=== PATIENT | female | born 1945 | race Two or more races ===

== ENCOUNTER 2020-06-22 22:22 | Emergency (ER) | payer OTHER ==
[~2020-06-22] VITALS: Ht 160 cm; Wt 59.0 kg
[2020-06-23 00:57] LABS: Hematocrit 39.7 % (36.0-46.0); Hemoglobin 13.1 g/dL (12.2-16.2); Mean Corpuscular Hemoglobin 29.3 pg (28.0-32.0); Mean Corpuscular Volume 88.6 fL (80.0-100.0); Platelet Count (auto) 211 10^3/uL (140-450); Red Blood Cells 4.48 10^6/uL (4.0-5.20); Red Cell Distribution Width 13.7 % (11.8-14.3); White Blood Cell 4.2 10^3/uL (4.4-10.8)
[2020-06-23 01:01] LABS: Band Neutrophils % (manual) 0; Basophils % (manual) 0 (0.0-2.0); Blast Cells 0; Eosinophils % (manual) 0 (0-7); Metamyelocytes % 0; Myelocytes % 0; Promyelocytes % 0; Reactive Lymphocytes 0
[2020-06-23 01:11] LABS: INR 0.97 (0.9-1.15); Partial Thromboplastin Time 28.8 sec (23.0-31.2)
[2020-06-23 01:13] LABS: Alanine Aminotransferase 23 U/L (13-56); Albumin 3.3 g/dL (3.4-5.0); Anion Gap 6 (5-15); Aspartate Aminotransferase 19 U/L (15-37); BUN/Creatinine Ratio 18.4; Blood Urea Nitrogen 16 mg/dL (7-18); Calcium 8.7 mg/dL (8.5-10.1); Carbon Dioxide 26 mmol/L (21-32); Chloride 109 mmol/L (98-107); GFR African American 82 mL/min; GFR Non-African American 68 mL/min; Glucose 85 mg/dL (74-106); Potassium 3.8 mmol/L (3.5-5.1); Sodium 141 mmol/L (136-145)
[2020-06-23 01:17] LABS: Alkaline Phosphatase 96 U/L (45-117); Bilirubin, Total 0.2 mg/dL (0.2-1.0)
[2020-06-23 01:23] LABS: Lymphocytes % (manual) 25 (10.0-50.0); Monocytes % (manual) 15 (0-12)
[2020-06-23] MEDS ORDERED: ACETAMINOPHEN 325 MG TAB PO ONE (03:15)
[2020-06-23 03:40] VITALS: BP 109/69
== END 2020-06-23 04:12 | disposition home or self-care (01) ==
LOC: ER 22:22
DX: U07.1 COVID-19 (principal); R53.1 Weakness; R05 Cough; R51 Headache
CPT/HCPCS: 36415; 71045; 80053; 82728; 83605; 83880; 84484; 85007; 85027; 85379; 85610; 85730; 87040; 87426; 93005

== ENCOUNTER 2024-01-25 17:19 | Emergency (ER) | payer OTHER ==
[~2024-01-25] VITALS: Ht 162.6 cm; Wt 50.0 kg
[2024-01-25 17:47] VITALS: PULSE 88; RESP 16; O2SAT 97
[2024-01-25 18:26] LABS: Acetaminophen < 2.0 UG/ML (10.0-20.0)
[2024-01-25 18:54] LABS: Salicylate < 3.0 mg/dL (2.8-20.0)
[2024-01-25 20:22] LABS: Amphetamine Screen, Urine Neg (NEGATIVE); Barbiturate Scree,Urine Neg (NEGATIVE); Benzodiazephine Screen, Urine Neg (NEGATIVE)
[2024-01-25 20:23] LABS: Cannabinoid Screen, Urine Neg (NEGATIVE); Cocaine Screen, Urine Neg (NEGATIVE); Opiate Scree,Urine Neg (NEGATIVE); Phencyclidine Screen, Urine Neg (NEGATIVE)
[2024-01-25 23:30] VITALS: BP 137/72; PULSE 72; RESP 18; TEMP 98; O2SAT 98
== END 2024-01-25 23:56 | disposition home or self-care (01) ==
LOC: EDBD 17:19 → ER 17:19
DX: R45.851 Suicidal ideations (principal); M25.561 Pain in right knee; M25.551 Pain in right hip; Z79.899 Other long term (current) drug therapy
CPT/HCPCS: 36415; 73501; 73560; 80307; 80320; 80329

== ENCOUNTER 2025-04-10 19:40 | Inpatient (IN) | payer OTHER ==
[~2025-04-10] VITALS: Ht 162.6 cm; Wt 57.7 kg
--- NOTE | 2025-04-10 22:17 | DVH ---
Exam: CT PELVIS WO CONTRAST History: fall Comparison Study: None Technique: Multidetector CT of the pelvis was performed from iliac crests to pubic symphysis after th e administration of intravenous contrast was administered during this examination. Portal venous imag ing was obtained. Axial, coronal and sagittal multiplanar reformats were performed by the technMyShapeis t on a separate workstation. Radiation Dose : CT Dose: CTDI volume is 10.38 mGy. Dose-length product is 379 0.47 mGy*cm Findings: Visualized bowel: No bowel wall thickening or dilatation. Ascites: Absent Lymphadenopathy: No pelvic or mesenteric lymphadenopathy. Vasculature: The visualized abdominal aorta is normal in size and caliber. Abdominal and pelvic vesse ls demonstrate normal enhancement. Pelvic Organs: Unremarkable Musculoskeletal: Severe osteoarthritis of the right hip with large subchondral cyst formation to the femoral head and fragmentation and collapse of the femoral head consistent with avascular necrosis. Bladder: Unremarkable Soft tissues: Unremarkable. IMPRESSION: 1. Severe osteoarthritic changes to the right hip with fragmentation of the right femoral head collap se suggesting underlying osteo necrosis. All CT scans at this medical facility are performed using dose modulation techniques as appropriate t o a performed exam including the following: Automated exposure control was utilized; adjustment of th e MA and/or KV according to patient size; and use of iterative reconstruction technique.
[2025-04-11 00:09] VITALS: PULSE 77; RESP 14; O2SAT 96
--- NOTE | 2025-04-11 00:24 | DVH ---
EXAM: CT HEAD WITHOUT CONTRAST INDICATION: fall TECHNIQUE: CT of the head without intravenous contrast. Radiation Dose : 1. Head: CT Dose: CTDI volume is 880.85 mGy. Dose-length product is 879.14 mGy*cm The dose indicators for CT are the volume Computed Tomography (CT) Dose Index (CTDIvol) and the Dose Length Product (DLP), and are measured in units of mGy and mGy-cm, respectively. These indicators are not patient dose, but values generated from the CT scanner acquisition factors. The report includes radiation exposure data for exposures received during this examination. COMPARISON: None FINDINGS: Beam attenuation artifact from the patient's hand on her face has obscured the findings of the skull base and posterior cranial fossa. There is no gross evidence of acute intracranial hemorrhage, extra-axial collection, mass effect, mid line shift, herniation or hydrocephalus. Increased prominence of the ventricles, sulci and cisterns is consistent with the sequelae of atrophi c cortical volume loss. The hart-white differentiation is intact. Moderate diffuse confluent periventricular and subcortical white matter hypoattenuation is nonspecifi c but may be related to small vessel ischemic disease. The surrounding soft tissues and osseous structures are grossly unremarkable. IMPRESSION: 1. Limited exam secondary to beam attenuation artifact arising from the patient's hand on her left si de of her face during the scan. This has resulted in obscuration of detail of the skull base and post erior cranial fossa. If there is strong suspicion for pathology in these regions, a repeat scan shoul d be performed when the patient can be compliant. 2. No gross evidence of acute intracranial process within the supratentorial brain not impacted by th e artifact described above. 3. Chronic sequelae of microvascular disease and atrophic cortical volume loss. Radiation optimization: All CT scans at this facility use at least one of these dose optimization turner hniques: automated exposure control mA and/or kV adjustment per patient size (includes targeted exam s where dose is matched to clinical indication) or iterative reconstruction.
--- NOTE | 2025-04-11 00:56 | ED.PDOC ---
History of Present Illness HPI Comments 79-year-old female brought in by EMS. Patient had a fall, complaining of pain to her right-sided flank. She believes she fell on top of a plastic container. Patient states she fell due to taking her Ativan and feeling tired and dizzy. Patient has had a incident at the pharmacy where she can not get her medications she was upset so she took one of her Ativan. Patient also reports history of right hip arthritis and states that Dr. Quiles supposed to perform hip replacement. Patient was cleaning of right flank pain and back pain and head pain. Denies any loss of consciousness. Patient unable to ambulate due to pain. Chief Complaint: Fall Injury Time Seen by MD: 19:51 Reviewed Notes: Nurses Notes Allergies: Coded Allergies: Aspirin (Verified Allergy, Unknown, 04/10/25) Ibuprofen (Verified Allergy, Unknown, 04/10/25) Information Source: Patient Mode of Arrival: EMS Severity: Moderate Past Medical History PAST MEDICAL HISTORY: Seizures Surgical History: Denies all surgeries PAPERHANGER AND PAINTER History: No Pertinent P[employer]ERHANGER AND PAINTER History Family History Family History: Reviewed,noncontributory to illness Social History Smoker: Non-Smoker Alcohol: Denies ETOH Use Drugs: Denies Drug Use Lives In: Home Constitutional: denies: chills, diaphoresis, fatigue, fever, malaise, sweats, weakness, others EENTM: denies: blurred vision, double vision, ear bleeding, ear discharge, ear drainage, ear pain, ear ringing, eye pain, eye redness, hearing loss, mouth pain, mouth swelling, nasal discharge, nose bleeding, nose congestion, nose pain, photophobia, tearing, throat pain, throat swelling, voice changes, others Respiratory: denies: cough, hemoptysis, orthopnea, SOB at rest, shortness of breath, SOB with excertion, stridor, wheezing, others Cardiovascular: denies: chest pain, dizzy spells, diaphoresis, Dyspnea on exertion, edema, irregular heart beat, left arm pain, lightheadedness, palpitations, PND, syncope, others Gastrointestinal: denies: abdomen distended, abdominal pain, blood streaked bowels, constipated, diarrhea, dysphagia, difficulty swallowing, hematemesis, melena, nausea, poor appetite, poor fluid intake, rectal bleeding, rectal pain, vomiting, others Genitourinary: denies: abnormal vagina bleeding, burning, dyspareunia, dysuria, flank pain, frequency, hematuria, incontinence, pain, , vagina discharge, urgency, others Neurological: denies: dizziness, fainting, headache, left sided numbness, left sided weakness, paresthesia, pre-existing deficit, right sided numbness, right sided weakness, seizure, speech problems, tingling, tremors, weakness, others Musculoskeletal: reports: back pain, joint pain, joint swelling, muscle pain Integumetry: denies: bruises, change in color, change in hair/nails, dryness, laceration, lesions, lumps, rash, wounds, others Allergic/Immunocompromised: denies: Difficulty Healing, Frequent Infections, Hives, Itching, others Physical Exam General Appearance: No Apparent Distress, Normal HEENT: Normal ENT Inspection, Pharynx Normal, TMs Normal Neck: Full Range of Motion, Non-Tender, Normal, Normal Inspection Respiratory: Chest Non-Tender, Lungs Clear, No Accessory Muscle Use, No Respiratory Distress, Normal Breath Sounds Cardiovascular: No Edema, No JVD, No Murmur, No Gallop, Normal Peripheral Pulses, Regular Rate/Rhythm Breast Exam: Deferred Gastrointestinal: No Organomegaly, Non Tender, No Pulsatile Mass, Normal Bowel Sounds, Soft Genitalia: Deferred Pelvic: Deferred Rectal: Deferred Extremities: No calf tenderness, Normal capillary refill, Normal inspection, Normal range of motion, Non-tender, No pedal edema Musculoskeletal : Location: Right Extremity Location: Hip (Tender to palpation of the top of the pelvis, no obvious leg shortening. Distal circulation and no vascular response intact of the lower extremities.) Apperance: Normal Neurologic: Alert, search marketing coordinator II-XII nml as Tested, Normal Mood Cerebellar Function: Normal Reflexes: NOT DONE Skin: Dry, Normal Color, Warm Lymphatic: No Adenopathy Was a procedure done? Was a procedure done?: No Differential Dx Considerations may include: Fracture, hip contusion, back contusion, lumbar strain, closed head injury X-Ray, Labs, Meds, VS Vital Signs Date Time Temp Pulse Resp B/P (MAP) Pulse Ox O2 Delivery O2 Flow Rate FiO2 04/10/25 22:43 98.4 80 17 132/74 (93) 97 98.4 04/10/25 19:59 97.5 71 16 131/75 (93) 98 97.5 X-Ray, Labs, Meds, VS Comment Spoke with son, patient lives alone, she is unable to take care of herself currently due to her hip pain Patient be admitted, pending orders from choice physicians According to the son patient is makes too much money to qualify for assistance, but does not make enough money to afford in-home care and/or nursing facility. Time of 1ST Reevaluation: 00:55 Reevaluation 1ST: Unchanged Patient Education/Counseling: Diagnosis, Treatment Family Education/Counseling: Diagnosis, Treatment SEPSIS Sepsis Screen Date sepsis recognized/suspect: Apr 10, 2025 Time Sepsis recognized/suspect: 1944 Recent Procedure: No On Antibiotic Therapy: No Respiratory Rate >20: No Heart Rate >90: No Temp<36 C (96.8 F) or >38.3 C: No SBP <90 or MAP <65 mmHG: No New Acute Mental Status Change: No Is the patient on CPAP, BIPAP,: No Physician Orders Pelvis Wo Contrast (04/10/25 20:44) Head Without Contrast (04/10/25 23:41) Vital Signs Date Time Temp Pulse Resp B/P (MAP) Pulse Ox O2 Delivery O2 Flow Rate FiO2 04/10/25 22:43 98.4 80 17 132/74 (93) 97 98.4 04/10/25 19:59 97.5 71 16 131/75 (93) 98 97.5 Departure 1 Departure Time of Disposition: 00:54 Impression: Primary Impression: Generalized weakness Additional Impressions: Right hip pain Right flank pain Gravely disabled Disposition: 09 ADMITTED INPATIENT Condition: Stable Discharged With: Self Critical Care Note Critical Care Time?: No Stability Stability form required: No Heart Score Heart Score: Heart Score Response (Comments) Value History N/A 0 EKG N/A 0 Age N/A 0 Risk Factors N/A 0 Troponin N/A 0 Total 0 RODRIGO DEY Apr 11, 2025 00:56
[2025-04-11 01:51] LABS: Hematocrit 37.1 % (36.0-46.0); Hemoglobin 12.2 g/dL (12.2-16.2); Mean Corpuscular Hemoglobin 29.6 pg (28.0-32.0); Mean Corpuscular Volume 89.9 fL (80.0-100.0); Nucleated Red Blood Cells % 0.0 %
[2025-04-11 01:58] LABS: Potassium 3.9 mmol/L (3.5-5.1); Sodium 142 mmol/L (136-145)
[2025-04-11 01:59] LABS: Anion Gap 6 (5-15); Carbon Dioxide 29 mmol/L (20-31)
[2025-04-11 02:00] LABS: Calcium 9.1 mg/dL (8.7-10.4); Chloride 107 mmol/L (98-107)
[2025-04-11 02:04] LABS: BUN/Creatinine Ratio 14.5 (10.0-20.0); Blood Urea Nitrogen 12 mg/dL (9-23); Glucose 102 mg/dL (74-106)
--- NOTE | 2025-04-11 03:45 | DVH ---
CHEST RADIOGRAPH Indication: dizzy Technique: Single frontal view of the chest was obtained COMPARISON: CHEST PORTABLE on DOS: 06/23/20 FINDINGS: Lines and Tubes: None Lungs: Diffuse chronic appearing bilateral interstitial pulmonary markings and increased prominence o f the interstitium. No evidence of focal consolidation. Pleura: No effusion. No pneumothorax. Cardiomediastinal contours: Unremarkable. Atherosclerotic vascular calcifications. Bones: Unremarkable IMPRESSION: 1. Diffuse increased prominence of the interstitium and chronic appearing bilateral interstitial pulm onary markings. No evidence of acute cardiopulmonary process.
[2025-04-11] MEDS ORDERED: MORPHINE SULFATE INJ 2 MG/ml SYRG IV PRN (06:00)
[2025-04-11] MEDS ORDERED: DEXTROSE (50%) 50ML SYRG IV PRN (06:00)
[2025-04-11] MEDS ORDERED: ONDANSETRON HCL 4 MG/2 ML VIAL IV PRN (06:00)
[2025-04-11] MEDS ORDERED: NITROGLYCERIN 0.4 MG SL TAB SL PRN (06:00)
--- NOTE | 2025-04-11 06:06 | DVHHP2 ---
SUNNI LINCOLN [employer] 04/11/25 0606: History of Present Illness Reason for Visit: right hip s/p fall History of Present Illness 79-year-old female with past medical history of right hip osteoarthritis with necrosis presents with complaints of right hip pain s/p fall. Patient apparently was drowsy after taking Ativan and fell when trying to get out of passenger side of a vehicle. Patient states hip pain is 10/10. Endorses she is having difficulty being able to move around and care for herself because of hip pain. During the emergency department evaluation CT of the pelvis demonstrates severe osteoarthritic changes to the right hip with fragmentation of the right femoral head collapse suggesting underlying osteonecrosis. At this time patient denies any fevers, chills, shortness of breath, dizziness, syncope, chest pain, palpitations, leg swelling, abdominal pain, nausea, vomiting Musculoskeletal: Osteoarthritis Smoke: No ALCOHOL: none Drugs: None Lives: Alone Review of Systems Constitutional: No: Fever, Chills, Sweats, Weakness, Malaise, Other Eyes: No: Pain, Vision change, Conjunctivae inflammation, Eyelid inflammation, Other, Redness ENT: No: Ear pain, Ear discharge, Nose pain, Nose discharge, Nose congestion, Mouth pain, Mouth swelling, Throat pain, Throat swelling, Other Respiratory: No: Cough, Dry, Shortness of breath, SOB with excertion, Wheezing, Hemoptysis, Pleuritic Pain, Sputum, Wheezing, Other Cardiovascular: No: Chest Pain, Palpitations, Orthopnea, Paroxysmal Noc. Dyspnea, Edema, Lt Headedness, Other Gastrointestinal: No: Nausea, Vomiting, Abdominal Pain, Diarrhea, Constipation, Melena, Hematochezia, Other Genitourinary: No Dysuria, No Frequency, No Incontinence, No Hematuria, No Retention, No Other Musculoskeletal: leg pain; No: other, neck pain, shoulder pain, arm pain, back pain, hand pain, foot pain Skin: No: Rash, Lesions, Jaundice, Bruising, Other Neurological: No: Weakness, Numbness, Incoordination, Change in speech, Confusion, Seizures, Other Allergies: Coded Allergies: Aspirin (Verified Allergy, Unknown, 04/10/25) Ibuprofen (Verified Allergy, Unknown, 04/10/25) Exam Vital Signs Vital Signs Date Time Temp Pulse Resp B/P (MAP) Pulse Ox O2 Delivery O2 Flow Rate FiO2 04/11/25 05:00 65 20 130/67 (88) 93 04/11/25 00:09 Room Air* 0 21 04/11/25 00:00 98.9 98.9 General Appearance: Alert, Oriented X3, Cooperative, moderate distress HEENT: Atraumatic, PERRLA, EOMI Respiratory: Clear to auscultation, Normal air movement Cardiovascular: Regular rate, Normal S1, Normal S2 Abdominal: Normal bowel sounds, Soft, No tenderness Extremities: Normal pulses, Other (Right hip tenderness with limited range of motion) Skin: No rashes, No breakdown Neuro: Normal speech, Strength at 5/5 X4 ext Psych/Mental Status: Mental status NL, Mood NL Labs/Xrays Labs Test 04/11/25 04:21 04/11/25 01:24 Range/Units Troponin I High Sensitivity 6 </=34 ng/L White Blood Count 7.9 4.4-10.8 10^3/uL Red Blood Count 4.13 4.0-5.20 10^6/uL Hemoglobin 12.2 12.2-16.2 g/dL Hematocrit 37.1 36.0-46.0 % Mean Corpuscular Volume 89.9 80.0-100.0 fL Mean Corpuscular Hemoglobin 29.6 28.0-32.0 pg Mean Corpuscular Hemoglobin Concent 33.0 32.0-36.0 g/dL Red Cell Distribution Width 14.5 H 11.8-14.3 % Platelet Count 307 140-450 10^3/uL Mean Platelet Volume 7.5 6.9-10.8 fL Neutrophils (%) (Auto) 62.4 37.0-80.0 % Lymphocytes (%) (Auto) 27.8 10.0-50.0 % Monocytes (%) (Auto) 8.9 0.0-12.0 % Eosinophils (%) (Auto) 0.4 0.0-7.0 % Basophils (%) (Auto) 0.5 0.0-2.0 % Neutrophils # (Auto) 5.0 1.6-8.6 10 ^3/uL Lymphocytes # (Auto) 2.2 0.4-5.4 10 ^3/uL Monocytes # (Auto) 0.7 0-1.3 10 ^3/uL Eosinophils # (Auto) 0 0-0.8 10 ^3/uL Basophils # (Auto) 0 0-0.2 10 ^3/uL Nucleated Red Blood Cells 0.0 % Sodium Level 142 136-145 mmol/L Potassium Level 3.9 3.5-5.1 mmol/L Chloride Level 107 98-107 mmol/L Carbon Dioxide Level 29 20-31 mmol/L Anion Gap 6 5-15 Blood Urea Nitrogen 12 9-23 mg/dL Creatinine 0.83 0.550-1.02 mg/dL Glomerular Filtration Rate Calc 72 >90 mL/min BUN/Creatinine Ratio 14.5 10.0-20.0 Serum Glucose 102 74-106 mg/dL Calcium Level 9.1 8.7-10.4 mg/dL SEPSIS Sepsis Screen Date sepsis recognized/suspect: Apr 11, 2025 Time Sepsis recognized/suspect: 318 Recent Procedure: No On Antibiotic Therapy: No Respiratory Rate >20: No Heart Rate >90: No Temp<36 C (96.8 F) or >38.3 C: No SBP <90 or MAP <65 mmHG: No New Acute Mental Status Change: No Is the patient on CPAP, BIPAP,: No Physician Orders Head Without Contrast (04/10/25 23:41) Urinalysis (04/11/25 01:08) Chest Xray 1 View (04/11/25 01:08) Pt Request For Service (04/11/25 03:17) Admit (04/11/25 05:52) Code Status (04/11/25 05:52) Vital Signs .PER UNIT PROTOCOL (04/11/25 05:52) Review Orders With Adm. (04/11/25 05:52) Bedrest With Bathroom Privileg (04/11/25 05:52) Npo (Nothing By Mouth) Diet (04/11/25 Breakfast) Oxygen By Face Mask (04/11/25 05:52) Acetaminophen Tablet (Tylenol Tablet) (04/11/25 06:00) Notify Md Of Changes From Base (04/11/25 05:52) Advance Directive (04/11/25 05:52) Echo 2d Mode Cardiac Dop (04/11/25 05:52) Basic Metabolic Panel (04/12/25 05:00) Basic Metabolic Panel (04/13/25 05:00) Basic Metabolic Panel (04/14/25 05:00) Basic Metabolic Panel (04/15/25 05:00) Complete Blood Count (04/12/25 05:00) Complete Blood Count (04/13/25 05:00) Complete Blood Count (04/14/25 05:00) Complete Blood Count (04/15/25 05:00) Complete Blood Count (04/16/25 05:00) D5w/Sod Chl 0.45% (D5w 1/2ns) (04/11/25 06:00) Patient Condition (04/11/25 05:52) Allergies (04/11/25 05:52) Ondansetron Hcl (Zofran) (04/11/25 06:00) Morphine 2mg Iv Q4hprn (04/11/25 06:00) Lovenox 40mg (04/11/25 10:00) Sequential Compression Device (04/11/25 ) Nitroglycerin Sublingual (Ntrostat Subli (04/11/25 06:00) Morphine Sulfate Injection (04/11/25 06:00) Stat Ekg For Chest Pain (04/11/25 05:52) Notify Md Of Changes From Base (04/11/25 05:52) Java Project Manager For 24 Hours (04/11/25 05:52) Emergency Dysrhythmia Protocol (04/11/25 05:52) Rhythm Strips Once Every Shift (04/11/25 05:52) Oxygen By Nasal Cannula (04/11/25 05:52) Glucose Blood (Accu-Chek Comfort Curve T (04/11/25 06:00) Mild Sliding Scale Npo - Q6hr (04/11/25 06:00) Dextrose 50% Syringe (04/11/25 06:00) *Consult Dr. 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 NPO diet Consult cardiology, echocardiogram for cardiac clearance. IVF Blood glucose checks to prevent hypoglycemia As needed analgesia. Fall precautions GI ppx Pepcid / DVT ppx lovenox Plan discussed with: Patient My Orders Orders - SUNNI LINCOLN NP Procedure Category Date Status Time Pt Request For Service PT 04/11/25 Logged 03:17 Admit ADMIT 04/11/25 Transmitted 05:52 Code Status CODE 04/11/25 Transmitted 05:52 Vital Signs [facility] 04/11/25 Transmitted 05:52 Review Orders With [facility] 04/11/25 Transmitted Adm. 05:52 Bedrest With Bathroom [facility] 04/11/25 Transmitted Privileg 05:52 Npo (Nothing By DIET 04/11/25 Transmitted Mouth) Diet Breakfast Oxygen By Face Mask RT 04/11/25 Transmitted 05:52 Acetaminophen Tablet PHA 04/11/25 Transmitted (Tylenol Tablet) 06:00 Notify Of Changes [facility] 04/11/25 Transmitted From Base 05:52 Advance Directive [facility] 04/11/25 Transmitted 05:52 Echo 2d Mode Cardiac US 04/11/25 Transmitted DOP 05:52 Basic Metabolic Panel LAB 04/12/25 Verified 05:00 Basic Metabolic Panel LAB 04/13/25 Verified 05:00 Basic Metabolic Panel LAB 04/14/25 Verified 05:00 Basic Metabolic Panel LAB 04/15/25 Verified 05:00 Complete Blood Count LAB 04/12/25 Verified 05:00 Complete Blood Count LAB 04/13/25 Verified 05:00 Complete Blood Count LAB 04/14/25 Verified 05:00 Complete Blood Count LAB 04/15/25 Verified 05:00 Complete Blood Count LAB 04/16/25 Verified 05:00 D5w/Sod Chl 0.45% PHA 04/11/25 Transmitted (D5w 1/2ns) 06:00 Patient Condition ORDERS 04/11/25 Transmitted 05:52 Allergies [facility] 04/11/25 Transmitted 05:[address] [facility] 04/11/25 Transmitted (Zofran) 06:00 Morphine 2mg Iv Q4hprn [facility] 04/11/25 Transmitted 06:[address] [facility] 04/11/25 Transmitted 10:00 Sequential [facility] 04/11/25 Transmitted Compression Device Nitroglycerin [facility] 04/11/25 Transmitted Sublingual (Ntrostat 06:[address] [facility] 04/11/25 Transmitted Injection 06:00 Stat Ekg For Chest [facility] 04/11/25 Transmitted Pain 05:52 Notify Md Of Changes [facility] 04/11/25 Transmitted From Base 05:52 Java Project Manager For [facility] 04/11/25 Transmitted 24 Hours 05:52 Emergency Dysrhythmia [facility] 04/11/25 Transmitted Protocol 05:52 Rhythm Strips Once [facility] 04/11/25 Transmitted Every Shift 05:52 Oxygen By Nasal RT 04/11/25 Transmitted Cannula 05:[address] [facility] 04/11/25 Transmitted (Accu-Chek Comfort 06:00 Mild Sliding Scale [facility] 04/11/25 Transmitted Npo - Q6hr 06:00 Dextrose 50% Syringe [facility] 04/11/25 Transmitted 06:00 *Consult Dr. Fuchs CONS 04/11/25 Transmitted Kb 05:52 * Cardiology Consult CONS 04/11/25 Transmitted 05:52 PTPTT LAB 04/11/25 Transmitted 05:52 Prothrombin Time W/ LAB 04/11/25 Transmitted INR 05:52 Date of Service: Apr 11, 2025 Billing Provider: ROSINA BELTRAN MD Common Visit Codes: NOT BILLABLE ROSINA BELTRAN MD 04/11/25 1408: Review of Systems Allergies: Coded Allergies: Aspirin (Verified Allergy, Unknown, 04/10/25) Ibuprofen (Verified Allergy, Unknown, 04/10/25) SUNNI LINCOLN NP Apr 11, 2025 06:06 ROSINA BELTRAN MD Apr 11, 2025 14:08
[2025-04-11] MEDS: ACCU-CHEK COMFORT CURVE STRIP VI SCH (06:49)
[2025-04-11] MEDS: InsuLIN REG 1unit/0.01ml Soln (100units/ml) SC SCH (06:52)
[2025-04-11] MEDS: D5W/SOD CHL 0.45% 1,000 ML IV SCH (06:58)
[2025-04-11 07:10] LABS: INR 0.98 (0.9-1.15); Partial Thromboplastin Time 27.7 SEC (24.5-34.5); Prothrombin Time 10.4 sec (9.3-11.8)
[2025-04-11 07:50] VITALS: PULSE 75; RESP 20; O2SAT 95
--- NOTE | 2025-04-11 07:51 | DVHINCON2 ---
Consult Note Consult Consult Note Reason for Consultation: Evaluation and management of right hip/ femoral neck fracture status post ground-level fall. --- History of Present Illness: Ms. Elizalde is an elderly female who presented to the Emergency Department following a ground-level fall last night. She was admitted for evaluation and pain control. A CT scan of the pelvis was completed, revealing a comminuted fracture of the right femoral neck. She denies any history of cardiac or pulmonary disease. She does report a remote history of seizures, with her last episode occurring over 30 years ago. She is not on any anticoagulation and denies a history of smoking. She uses a wheelchair/Walker for ambulation. --- Review of Systems: Cardiac: Denies chest pain, palpitations, or known history of cardiac disease. Pulmonary: Denies shortness of breath or chronic respiratory conditions. Neurological: Remote history of seizures; no recent episodes. Hematologic: Denies use of blood thinners or bleeding disorders. Constitutional: No fever or weight loss reported. --- Physical Examination: General: Alert, in mild distress due to pain. Extremities: Right Hip: Tender to palpation in the right groin. Range of Motion: Unable to range right hip due to pain. Skin: No open lesions or deformities. Neurovascular: Grossly intact distally in the right lower extremity. Other Joints: No pain or complaints noted elsewhere. --- Imaging: CT scan confirms comminuted fracture of the right femoral neck. --- Assessment: 1. Right femoral neck fracture, comminuted 2. History of remote seizure disorder 3. Ambulatory by wheelchair 4. No known cardiac, pulmonary, or hematologic contraindications at this time --- Plan: Patient to remain NPO. She has been NPO since last night. Continue NPO status. Cardiac clearance requested to proceed with surgery.Pending at this time Plan for open reduction internal fixation (ORIF) of the right hip/Coleman vs total today at approximately 1400 hours, pending cardiac clearance. Obtain surgical consent for ORIF of the right hip, including discussion of risks (infection, bleeding, neurovascular injury, failure of fixation, need for future revision, anesthesia risks).Pending consent from Power of senior quality technician patients elder son (Not at bed side, ER has attempted to make contact via phone, pending), Order for consent is placed but will need POA to sign off on it. Discussed case with on-call orthopedic surgeon, Dr. Hammer.Aware of above and agrees All questions were answered. Patient agrees with the plan. Plan discussed with: Patient Visit Coding Surgery Date of Service if different f: Apr 11, 2025 Billing Provider: LYNDON LIEBERMAN Surgery Visit Codes: 30271 - INP CONSULT <55 MIN LYNDON LIEBERMAN Apr 11, 2025 07:51
[2025-04-11 07:57] LABS: Urine Amorphous Crystal FEW /hpf (None Seen); Urine Protein, UAD Negative (Negative)
[2025-04-11] MEDS: ENOXAPARIN SOD 40 MG/0.4 ML SYRINGE SC SCH (11:22)
[2025-04-11] MEDS: FAMOTIDINE (10MG/ML) 2ML VL IV SCH (11:22)
[2025-04-11] MEDS: cefTRIAXone 1GM/50ML D5W 50 ML IV ONE (12:23)
--- NOTE | 2025-04-11 14:48 | DVHCONRES ---
Date Seen: Apr 11, 2025 Resident Creating Document: JENNIFER VIDAL RESDIENT History of Present Illness This is a 79-year-old female with past medical history of asthma, and seizure came to the hospital due to hip pain status post mechanical fall. CT scan shows femoral neck osteonecrosis wheel fragmentation. Cardiology has been consulted for preoperation evaluation. Patient does not any active cardiac related complaint including chest pain, shortness of breaths or palpitation. PMHx: asthma, and seizure, and osteoarthritis Home medication: Does not take any medicine at home Allergic history: Aspirin ibuprofen Patient seen and examined at the bedside. Patient is still complaining of pain. Patient does not have any shortness of breath or chest pain. Allergies: Coded Allergies: Aspirin (Verified Allergy, Unknown, 04/10/25) Ibuprofen (Verified Allergy, Unknown, 04/10/25) Current Medications Current Medications Medications (Trade) Dose Ordered Sig/Rina Route PRN Reason Start Time Stop Time Status Last Admin Acetaminophen (Tylenol Tablet) 650 mg Q6HP PRN PO PAIN SCALE 1-3 OR TEMP>100.4 04/11/25 06:00 Dextrose/Sodium Chloride 1,000 ml @ 60 mls/hr [id number] IV 04/11/25 06:00 04/11/25 06:58 Ondansetron HCl (Zofran) 4 mg Q4HP PRN IV NAUSEA / VOMITING 04/11/25 06:00 Morphine Sulfate 2 mg Q4HPRN PRN IV SEVERE PAIN (7-10 PAIN SCALE) 04/11/25 06:00 Enoxaparin Sodium (Lovenox) 40 mg DAILY SC 04/11/25 10:00 Nitroglycerin (Ntrostat Sublingual) 0.4 mg Q5MINP PRN SL FOR CHEST PAIN 04/11/25 06:00 Morphine Sulfate 2 mg Q30M PRN IV FOR CHEST PAIN 04/11/25 06:00 Diagnostic Test (Pha) (Accu-Chek Comfort Curve T) 1 strip Q6HR 04/11/25 06:00 04/11/25 12:22 Insulin Human Regular (InsuLIN R) Q6HR SC 04/11/25 06:00 Dextrose 50 ml UD PRN IV Blood Sugar LESS THAN 60 04/11/25 06:00 Famotidine (Pepcid Injection) 20 mg DAILY IV 04/11/25 10:00 7/16/25 11:22 Ceftriaxone Sodium 50 ml @ 100 mls/hr DAILY@09 IV 04/12/25 09:00 Vital Signs Vital Signs Date Time Temp Pulse Resp B/P (MAP) Pulse Ox O2 Delivery O2 Flow Rate FiO2 04/11/25 12:00 98.2 66 17 141/73 (95) 96 98.2 04/11/25 07:50 Room Air* 0 21 Physical Exam General Appearance: Alert, Oriented X3, Cooperative, No acute distress HEENT: Atraumatic, PERRLA, EOMI, Mucous membrane moist/pink Respiratory: Clear to auscultation, Normal air movement Cardiovascular: Regular rate, Normal S1, Normal S2, No murmurs, no chest wall tenderness Abdominal: Normal bowel sounds, Soft, No tenderness, No hepatospenomegaly, No masses Extremities: Decreased lower limb range of motion due to pain Skin: No rashes, No breakdown, No significant lesion Neuro: Normal gait, Normal speech, Strength at 5/5 X4 ext, Normal tone, Sensation intact, Cranial nerves 3-12 NL, Reflexes 2+ Psych/Mental Status: Mental status NL, Mood NL Labs/Diagnostic Data Labs Test 04/11/25 12:21 04/11/25 06:45 04/11/25 06:29 04/11/25 04:21 Range/Units POC Glucose 104 70-106 mg/dl Urine Color Colorless Yellow Urine Clarity Ex.turbid Clear Urine pH 8.0 5.0-9.0 Urine Specific [place] 1.008 1.001-1.035 Urine Protein Negative Negative Urine Ketones Negative Negative Urine Blood Negative Negative /uL Urine Nitrite Negative Negative Urine Bilirubin Negative Negative Urine Urobilinogen Normal Negative mg/dL Urine Leukocyte Esterase 1+ Negative /uL Urine RBC 2 0 - 4 /hpf Urine Microscopic WBC 12 H 0-5 /HPF Urine Squamous Epithelial Cells Few <5 /hpf Urine Amorphous Crystals Few None Seen /hpf Urine Bacteria Few H None Seen /hpf Urine Mucus Few None Seen Urine Glucose Normal Normal mg/dL Prothrombin Time 10.4 9.3-11.8 sec Prothrombin Time INR 0.98 0.9-1.15 Activated Partial Thromboplast Time 27.7 24.5-34.5 SEC Troponin I High Sensitivity 6 </=34 ng/L Test 04/11/25 01:24 Range/Units White Blood Count 7.9 4.4-10.8 10^3/uL Red Blood Count 4.13 4.0-5.20 10^6/uL Hemoglobin 12.2 12.2-16.2 g/dL Hematocrit 37.1 36.0-46.0 % Mean Corpuscular Volume 89.9 80.0-100.0 fL Mean Corpuscular Hemoglobin 29.6 28.0-32.0 pg Mean Corpuscular Hemoglobin Concent 33.0 32.0-36.0 g/dL Red Cell Distribution Width 14.5 H 11.8-14.3 % Platelet Count 307 140-450 10^3/uL Mean Platelet Volume 7.5 6.9-10.8 fL Neutrophils (%) (Auto) 62.4 37.0-80.0 % Lymphocytes (%) (Auto) 27.8 10.0-50.0 % Monocytes (%) (Auto) 8.9 0.0-12.0 % Eosinophils (%) (Auto) 0.4 0.0-7.0 % Basophils (%) (Auto) 0.5 0.0-2.0 % Neutrophils # (Auto) 5.0 1.6-8.6 10 ^3/uL Lymphocytes # (Auto) 2.2 0.4-5.4 10 ^3/uL Monocytes # (Auto) 0.7 0-1.3 10 ^3/uL Eosinophils # (Auto) 0 0-0.8 10 ^3/uL Basophils # (Auto) 0 0-0.2 10 ^3/uL Nucleated Red Blood Cells 0.0 % Sodium Level 142 136-145 mmol/L Potassium Level 3.9 3.5-5.1 mmol/L Chloride Level 107 98-107 mmol/L Carbon Dioxide Level 29 20-31 mmol/L Anion Gap 6 5-15 Blood Urea Nitrogen 12 9-23 mg/dL Creatinine 0.83 0.550-1.02 mg/dL Glomerular Filtration Rate Calc 72 >90 mL/min BUN/Creatinine Ratio 14.5 10.0-20.0 Serum Glucose 102 74-106 mg/dL Calcium Level 9.1 8.7-10.4 mg/dL Assessment Pre-surgery risk stratification Hip neck fracture History of seizure History of asthma * EKGs shows normal sinus rhythm with a significant ST or T-wave changes * Serial trop I is within normal * Chest x-ray shows no intrathoracic abnormalities * Revised cardiac risk index (leak criteria), 1 score * Functional capacity the could not assess due to patient's limited mobility due to severe osteoarthritis Plan/recommendation * Patient is at low risk of cardiovascular event for the moderate risk surgery * No further cardiology workup required at the moment * Rest of plan primary team Thank you for giving us the opportunity to the care of your patient. Please call back if you have any questions/concerns. Plan discussed with: Patient, Other (RN) JENNIFER VIDAL Apr 11, 2025 14:48
[2025-04-11] MEDS: VANCOMYCIN HCL 1000 MG VL ONE (15:17)
[2025-04-11] MEDS: TRANEXAMIC ACID 20 ML ONE (15:17)
[2025-04-11] MEDS: BUPIVACAINE 0.25% INJ 50ML VIAL ONE (15:19)
--- NOTE | 2025-04-11 15:58 | DVHOP2 ---
Operative Report - 2 Report Details Date: 04/11/25 Preop Diagnosis: Right hip avascular necrosis with fragmentation Postop Diagnosis: Right hip avascular necrosis with fragmentation Surgeon: Jef Lopez MD Director Geothermal Operations: Speedy SMITH Anesthesiologist: Jamari PEREZ Anesthesia: Regional Implant: [employer] Bipolar Consent: The patient was informed of the risks and benefits of the procedure. These include but are not limited to complications of anesthesia, postoperative infection, incomplete relief of symptoms, recurrence of symptoms, damage to blood vessels, nerves and tendons, deep venous thrombosis, pulmonary embolism and possible need for repeat surgery in the future. Estimated Blood Loss: 100 cc Name of Procedure Performed Right hip hemiarthroplasty Procedure Details Procedure Details: I had a long discussion with the patient and family regarding the plan, the expected outcome, the risks, benefits, and alternatives of surgery. The risks include, but are not limited to, infection (which may require future surgery and removal of implants) , bleeding (which may require a transfusion), damage to nerves, arteries, veins, tendons, muscles and other adjacent structures. Also discussed the possibilities of dislocation, leg-length discrepancy, intraoperative fractures, implant loosening, heterotopic bone formation, and revision for variety of reasons, and medical complications etc. This was discussed at length and consent has been obtained. DESCRIPTION OF PROCEDURE: In the preoperative holding area, the consent was reviewed and the appropriate extremity was verified by the patient and marked with my initials. The patient was then transferred to the operating theatre. Appropriate anesthetia was induced. All bony prominences were well padded. A time out was performed verifying the side and site of surgery according to standard protocol. Preoperative antibiotics were given. Tranexamic acid was given. The patient was then placed in the lateral decubitus position and fixed with rigid pelvic fixation. All bony prominences were well padded and an axillary roll was placed. The affected hip area was then prepped and draped in the usual sterile fashion. We made a standard posterolateral incision sharply through the skin and carried our dissection down through subcutaneous tissue to the underlying fascia achieving hemostasis where necessary. We incised the fascia in line with our incision. We identified and protected the sciatic nerve. We took down the external rotators and hip capsule from their insertion into the greater trochanter, tagged them and retracted them posteriorly for further protection of the sciatic nerve. Attention was then turned to the femur. We used a box osteotome followed by a canal finder to gain entry to the canal. Intramedullary contents were suctioned and care was taken to ensure they did not touch the tissues. We sequentially reamed until good cortical contact, then broached up to out final size. We trialed with the appropriate femoral neck and head and reduced the hip. The hip was taken through a full range of motion. The hip soft tissues were examined in extension and external rotation, the anterior capsule and IT band were palpated, and combined anteversion was determined to be 40 degrees. The hip was stable at maximum flexion, at 90 degrees of flexion and 45 degrees of internal rotation and the position of sleep. Leg lengths were restored as shown using the computer navigation, and the trial LTC matched preoperative and intraoperative templating. The hip was then dislocated and trial components removed. We copiously irrigated the wound and impacted the final femoral stem into position. The femoral head was impacted onto a clean and dry trunion and confirmed to be seated. The hip was reduced ensuring to tissues in the acetabular cup. We again brought it through a full functional range of motion and there was no evidence for dislocation, instability, or impingement. The checkpoint was removed. A dilute betadine solution (17.5mL in 500mL saline) was used to wash the joint and left to sit for 3 minutes. This was then irrigated out with copious amounts of pulse lavage. We sprinkled 1g vancomycin powder below the fascia and 1g above the fascia. We copiously irrigated the wound and soft tissues. The short external rotators and capsule were repaired to the greater trochanter through drill holes, and the quadratus was repaired. We palpated the sciatic nerve in continuity without tension. The fascia was closed with vicryl and a barbed suture. We closed over the fascia with vicryl suture and re-approximated the skin with gregorio. A sterile dressing was placed. We returned the patient to the supine position. We verified all lower extremity compartments were soft and compressible and that we had intact distal pulses and checked our leg length shinto. The patient was then transferred to the recovery room in stable condition. Condition Good Disposition Still a Patient JEF LOPEZ MD Apr 11, 2025 15:58
[2025-04-11] MEDS ORDERED: fentaNYL CITRATE 100 MCG/2 ML VL ONE (16:35)
[2025-04-11] MEDS ORDERED: PROPOFOL 10 MG/ML 20 ML IV ONE (16:35)
[2025-04-11] MEDS ORDERED: ROCURONIUM 10MG/ML 10ML VIAL IV ONE (16:35)
[2025-04-11] MEDS ORDERED: ONDANSETRON HCL 4 MG/2 ML VIAL ONE (16:35)
[2025-04-11] MEDS ORDERED: LIDOCAINE 2% (LOCAL ANESTH.) PF 5ml SDV ONE (16:35)
[2025-04-11] MEDS: ceFAZolin 2 GM/D5W50ml 50 ML IV ONE (16:35)
[2025-04-11] MEDS ORDERED: METOCLOPRAMIDE HCL 5MG/ml INJ 2ml VIAL ONE (16:35)
[2025-04-11] MEDS ORDERED: MORPHINE SULF PF 5 MG/10 ML VIAL ONE (17:10)
[2025-04-11] MEDS ORDERED: HYDROmorphone HCL 2 MG/ML VL/or syr ONE (17:11)
[2025-04-11] MEDS: KETOROLAC TROMETH 30 MG/ML 1ML VIAL ONE (17:12)
[2025-04-11] MEDS ORDERED: LIDOCAINE W/ EPINEPHRINE 1% 20ML VIAL ONE (17:26)
[2025-04-11] MEDS ORDERED: SUGAMMADEX 200mg/2ml Vial (100MG/ML) IV ONE (17:32)
[2025-04-11 18:08] VITALS: PULSE 77; RESP 15; O2SAT 100
[2025-04-11] MEDS: ONDANSETRON HCL 4 MG/2 ML VIAL IV ONE (18:15)
[2025-04-11] MEDS ORDERED: HYDROmorphone HCL 2 MG/ML VL/or syr IV PRN (18:15)
[2025-04-11] MEDS ORDERED: hydrALAZINE HCL 20 MG/ML VL IV PRN (18:15)
[2025-04-11 18:46] VITALS: PULSE 84; RESP 14; O2SAT 100
--- NOTE | 2025-04-11 19:54 | ECG ---
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
[2025-04-11] MEDS: ceFAZolin 1GM/50ML 50 ML IV SCH (22:00)
[2025-04-11 22:13] VITALS: PULSE 71; RESP 18
[2025-04-12] VITALS (8 sets, daily range): BP systolic 102–141; BP diastolic 57–83; PULSE 82–108; RESP 16–18; TEMP 97.9–99.1; O2SAT 95–97
[2025-04-12] MEDS: LACTATED RINGER'S 1,000 ML IV SCH (02:00)
[2025-04-12] MEDS: SODIUM CHLOR 0.9% PF (SALINE LOCK) 10ML VIAL/SYR IV SCH (03:05)
--- NOTE | 2025-04-12 05:11 | DVH ---
CLINICAL INDICATION: sp right hip mirian TECHNIQUE: XY PELVIS AP Comparison: CT PELVIS WO CONTRAST on DOS: 04/10/25 FINDINGS/IMPRESSION: : Postsurgical changes status post right hip arthroplasty without evidence of complication. There is no evidence of acute fracture or dislocation. Soft tissues are unremarkable.
[2025-04-12 08:15] LABS: Hematocrit 38.2 % (36.0-46.0); Hemoglobin 12.2 g/dL (12.2-16.2); Mean Corpuscular Hemoglobin 29.1 pg (28.0-32.0); Mean Corpuscular Volume 91.4 fL (80.0-100.0); Nucleated Red Blood Cells % 0.0 %
[2025-04-12 08:19] LABS: Anion Gap 8 (5-15); Carbon Dioxide 24 mmol/L (20-31); Sodium 140 mmol/L (136-145)
[2025-04-12 08:20] LABS: Calcium 9.0 mg/dL (8.7-10.4)
[2025-04-12 08:25] LABS: BUN/Creatinine Ratio 13.8 (10.0-20.0); Blood Urea Nitrogen 11 mg/dL (9-23)
[2025-04-12 08:26] LABS: Chloride 108 mmol/L (98-107); Glucose 150 mg/dL (74-106)
[2025-04-12 08:27] LABS: Potassium 5.6 mmol/L (3.5-5.1)
[2025-04-12] MEDS: cefTRIAXone 1GM/50ML D5W 50 ML IV SCH (09:41)
[2025-04-12] MEDS: FUROSEMIDE 20 MG/2 ML VIAL IV ONE (09:46)
--- NOTE | 2025-04-12 14:50 | DVHPN2 ---
Subjective Overnight events noted. Patient does not want take any [place] or morphine requesting only Tylenol extra stent. Also currently has a sitter at bedside. Changes from previous H/P or p: No Changes Eyes: No Pain, No Vision change, No Conjunctivae inflammation, No Eyelid inflammation, No Other, No Redness ENT: No Ear pain, No Ear discharge, No Nose pain, No Nose discharge, No Nose congestion, No Mouth pain, No Mouth swelling, No Throat pain, No Throat swelling, No Other Cardiovascular: No Chest Pain, No Palpitations, No Orthopnea, No Paroxysmal Noc. Dyspnea, No Edema, No Lt Headedness, No Other Respiratory: No Cough, No Dry, No Shortness of breath, No SOB with excertion, No Wheezing, No Hemoptysis, No Pleuritic Pain, No Sputum, No Other Gastrointestinal: No Nausea, No Vomiting, No Abdominal Pain, No Diarrhea, No Constipation, No Melena, No Hematochezia, No Other Genitourinary: No Dysuria, No Frequency, No Incontinence, No Hematuria, No Retention, No Other Musculoskeletal: No other, No neck pain, No shoulder pain, No arm pain, No back pain, No hand pain; leg pain; No foot pain Skin: No Rash, No Lesions, No Jaundice, No Bruising, No Other Objective Vitals Vital Signs Date Time Temp Pulse Resp B/P (MAP) Pulse Ox O2 Delivery O2 Flow Rate FiO2 04/12/25 12:43 98.3 98 18 104/60 (75) 96 98.3 04/12/25 08:00 Room Air* 0 21 Intake/Output Intake and Output 04/12/25 07:00 Intake Total 200 ml Output Total 250 ml Balance -50 ml Intake Oral 150 ml IV Total 50 ml Output Urine Total 250 ml Exam HEENT pupils are reactive Neck is supple CV is S1-S2 regular rate and rhythm Respiratory bilateral clear GI positive bowel sound Extremity no edema [employer]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 Medications Current Medications Medications Dose Ordered Sig/Rina Route Start Time Stop Time Status Last Admin Dose Admin Acetaminophen 650 mg Q6HP PRN PO 04/11/25 06:00 Dextrose/Sodium Chloride 1,000 ml @ 60 mls/hr [id number] IV 04/11/25 06:00 04/11/25 06:58 60 MLS/HR Ondansetron HCl 4 mg Q4HP PRN IV 04/11/25 06:00 Morphine Sulfate 2 mg Q4HPRN PRN IV 04/11/25 06:00 Enoxaparin Sodium 40 mg DAILY SC 04/11/25 10:00 04/12/25 09:46 40 MG Nitroglycerin 0.4 mg Q5MINP PRN SL 04/11/25 06:00 Morphine Sulfate 2 mg Q30M PRN IV 04/11/25 06:00 Diagnostic Test (Pha) 1 strip Q6HR 04/11/25 06:00 04/12/25 11:46 1 STRIP Insulin Human Regular Q6HR SC 04/11/25 06:00 04/12/25 05:41 3 UNITS Dextrose 50 ml UD PRN IV 04/11/25 06:00 Famotidine 20 mg DAILY IV 04/11/25 10:00 04/12/25 09:46 20 MG Ceftriaxone Sodium 50 ml @ 100 mls/hr DAILY@09 IV 04/12/25 09:00 04/12/25 09:41 100 MLS/HR Sodium Chloride 10 ml Q8HR IV 04/11/25 22:00 04/12/25 05:49 10 ML Laboratory Results Laboratory Tests 04/12/25 06:06 Chemistry Test 04/12/25 06:06 Calcium Level 9.0 mg/dL (8.7-10.4) Urinalysis Test 04/11/25 06:45 Urine Color Colorless (Yellow) Urine Clarity Ex.turbid (Clear) Urine pH 8.0 (5.0-9.0) Urine Specific [place] 1.008 (1.001-1.035) Urine Protein Negative (Negative) Urine Ketones Negative (Negative) Urine Blood Negative /uL (Negative) Urine Nitrite Negative (Negative) Urine Bilirubin Negative (Negative) Urine Urobilinogen Normal mg/dL (Negative) Urine Leukocyte Esterase 1+ /uL (Negative) Urine RBC 2 /hpf (0 - 4) Urine Microscopic WBC 12 /HPF (0-5) H Urine Squamous Epithelial Cells Few /hpf (<5) Urine Amorphous Crystals Few /hpf (None Seen) Urine Bacteria Few /hpf (None Seen) H Urine Mucus Few (None Seen) Urine Glucose Normal mg/dL (Normal) Assessment/Plan Assessment/Plan 79-year-old female with a known history of Alzheimer dementia, has a mechanical fall found to have 1. Right hip avascular necrosis with recommendation status post right hip hemiarthroplasty 2. Leukocytosis likely reactive 3. Dementia 4. Acute delirium/encephalopathy -continue sitter at bedside, DVT GI prophylaxis, physical therapy evaluation and treatment, discharge plan. Plan discussed with: Patient My Orders Orders - ROSINA BELTRAN MD Procedure Category Date Status Time Potassium LAB 04/12/25 Logged 14:36 Basic Metabolic Panel LAB 04/12/25 Transmitted 14:47 Date of Service: Apr 12, 2025 Billing Provider: ROSINA BELTRAN MD Common Visit Codes: NOT BILLABLE ROSINA BELTRAN MD Apr 12, 2025 14:50
[2025-04-12 15:19] LABS: Potassium 4.1 mmol/L (3.5-5.1); Sodium 139 mmol/L (136-145)
[2025-04-12 15:20] LABS: Anion Gap 5 (5-15); Calcium 8.8 mg/dL (8.7-10.4); Carbon Dioxide 26 mmol/L (20-31)
[2025-04-12 15:25] LABS: BUN/Creatinine Ratio 13.0 (10.0-20.0); Blood Urea Nitrogen 14 mg/dL (9-23); Chloride 108 mmol/L (98-107); Glucose 109 mg/dL (74-106)
[2025-04-12] MEDS: ACETAMINOPHEN 325 MG TAB PO PRN (16:47)
[2025-04-12] MEDS ORDERED: TRAM50TA2 PO (17:54)
--- NOTE | 2025-04-12 17:58 | DVHSR ---
APPROVED REPORT EXAM: Two-dimensional and M-mode echocardiogram with Doppler and color Doppler. Blood Pressure: 130/67 mmHg INDICATION Pre-Op RISK FACTORS Height: 64, Weight: 114 DIMENSIONS LVDd4.5 (3.8-5.7cm)LA (2D)4.0 (1.9-4.0cm)Aortic Root3.3 (2.0-3.7cm) LVDs2.7 (2.5-4.0cm)LA (MM) (1.9-4.0cm)Aortic Cusp Exc1.6 (1.5-2.0cm) EF (%) 71.0 (55-70%)Rt. Atrium5.0 (1.9-4.0cm)Asc. Aorta cm IVSd0.9 (0.7-1.1cm)RV (D) (1.8-2.4cm) PWd0.9 (0.7-1.1cm) Mitral Valve MitralMitral Stenosis E wave0.48m/sMV Mean GR.mmHg A wave0.70m/sMV Peak GR.92mmHg E/A ratio0.72D MVAcm2 DECEL [id number] 1/2 Tim[place] Aortic Valve Aortic ValveAortic Stenosis V10.79m/Rommel Mean GR.3mmHg V21.21m/Rom[place] Peak GR.6mmHg LVOT Diameter1.7 (1.8-2.4cm)Doppler AVA1.48cm2 AI P 1/2 Gnru302.76ms Pulmonic Valve V20.73m/s Tricuspid Valve TR Velocity2.28m/s [id number] Other Information Quality : Technically LimitedRhythm : Conclusion LVEF normal at 50-55% RV size and function normal Left atrium mildly dilated, right atrium moderately dilated no significant valve disease
[2025-04-13] VITALS (7 sets, daily range): BP systolic 101–133; BP diastolic 57–76; PULSE 83–91; RESP 17–19; TEMP 36.7; O2SAT 95–97
[2025-04-13] MEDS: MORPHINE SULFATE INJ 2 MG/ml SYRG IV PRN (01:22)
[2025-04-13 07:34] LABS: Hematocrit 31.6 % (36.0-46.0); Hemoglobin 10.4 g/dL (12.2-16.2); Mean Corpuscular Hemoglobin 30.1 pg (28.0-32.0); Mean Corpuscular Volume 91.6 fL (80.0-100.0); Nucleated Red Blood Cells % 0.1 %
[2025-04-13 07:49] LABS: Anion Gap 7 (5-15); Carbon Dioxide 24 mmol/L (20-31); Potassium 4.1 mmol/L (3.5-5.1); Sodium 140 mmol/L (136-145)
[2025-04-13 07:55] LABS: BUN/Creatinine Ratio 19.7 (10.0-20.0); Blood Urea Nitrogen 15 mg/dL (9-23)
[2025-04-13 07:56] LABS: Magnesium 2.3 mg/dL (1.6-2.6)
[2025-04-13 07:57] LABS: Calcium 8.7 mg/dL (8.7-10.4); Chloride 109 mmol/L (98-107); Glucose 122 mg/dL (74-106)
--- NOTE | 2025-04-13 13:54 | DVHDS2 ---
Discharge Summary Date of Admission Apr 11, 2025 at 05:52 Date of Discharge: Apr 13, 2025 Labs/Diagnostic Data: Laboratory Results Test 04/13/25 11:47 04/13/25 06:10 04/11/25 06:45 04/11/25 06:29 POC Glucose 140 mg/dl (70-106) White Blood Count 10.6 10^3/uL (4.4-10.8) Red Blood Count 3.46 10^6/uL (4.0-5.20) Hemoglobin 10.4 g/dL (12.2-16.2) Hematocrit 31.6 % (36.0-46.0) Mean Corpuscular Volume 91.6 fL (80.0-100.0) Mean Corpuscular Hemoglobin 30.1 pg (28.0-32.0) Mean Corpuscular Hemoglobin Concent 32.9 g/dL (32.0-36.0) Red Cell Distribution Width 14.6 % (11.8-14.3) Platelet Count 226 10^3/uL (140-450) Mean Platelet Volume 7.9 fL (6.9-10.8) Neutrophils (%) (Auto) 76.7 % (37.0-80.0) Lymphocytes (%) (Auto) 9.5 % (10.0-50.0) Monocytes (%) (Auto) 11.4 % (0.0-12.0) Eosinophils (%) (Auto) 2.0 % (0.0-7.0) Basophils (%) (Auto) 0.4 % (0.0-2.0) Neutrophils # (Auto) 8.1 10 ^3/uL (1.6-8.6) Lymphocytes # (Auto) 1.0 10 ^3/uL (0.4-5.4) Monocytes # (Auto) 1.2 10 ^3/uL (0-1.3) Eosinophils # (Auto) 0.2 10 ^3/uL (0-0.8) Basophils # (Auto) 0 10 ^3/uL (0-0.2) Nucleated Red Blood Cells 0.1 % Sodium Level 140 mmol/L (136-145) Potassium Level 4.1 mmol/L (3.5-5.1) Chloride Level 109 mmol/L (98-107) Carbon Dioxide Level 24 mmol/L (20-31) Anion Gap 7 (5-15) Blood Urea Nitrogen 15 mg/dL (9-23) Creatinine 0.76 mg/dL (0.550-1.02) Glomerular Filtration Rate Calc 80 mL/min (>90) BUN/Creatinine Ratio 19.7 (10.0-20.0) Serum Glucose 122 mg/dL (74-106) Calcium Level 8.7 mg/dL (8.7-10.4) Phosphorus Level 1.9 mg/dL (2.4-5.1) Magnesium Level 2.3 mg/dL (1.6-2.6) Urine Color Colorless (Yellow) Urine Clarity Ex.turbid (Clear) Urine pH 8.0 (5.0-9.0) Urine Specific [place] 1.008 (1.001-1.035) Urine Protein Negative (Negative) Urine Ketones Negative (Negative) Urine Blood Negative /uL (Negative) Urine Nitrite Negative (Negative) Urine Bilirubin Negative (Negative) Urine Urobilinogen Normal mg/dL (Negative) Urine Leukocyte Esterase 1+ /uL (Negative) Urine RBC 2 /hpf (0 - 4) Urine Microscopic WBC 12 /HPF (0-5) Urine Squamous Epithelial Cells Few /hpf (<5) Urine Amorphous Crystals Few /hpf (None Seen) Urine Bacteria Few /hpf (None Seen) Urine Mucus Few (None Seen) Urine Glucose Normal mg/dL (Normal) Prothrombin Time 10.4 sec (9.3-11.8) Prothrombin Time INR 0.98 (0.9-1.15) Activated Partial Thromboplast Time 27.7 SEC (24.5-34.5) Test 04/11/25 04:21 Troponin I High Sensitivity 6 ng/L (</=34) Other Laboratory Tests 04/13/25 06:10 Brief Hx & Hospital Course: 79-year-old female with a known history of Alzheimer dementia, has a mechanical fall found to have right hip avascular necrosis with a fragmentations. Patient was seen by Orthopedics. Cardiac clearance was taken before surgery. Patient underwent right hip hemiarthroplasty postoperatively patient was confused eventually requiring one-to-one sitter. Today patient is more awake alert oriented. Patient will be discharged to [facility] facility with a close follow up as an outpatient with the PCP, Orthopedics, Neurology for cognitive decline. Patient is being discharged under stable condition to [facility] facility for pain management and physical therapy and occupation therapy. Condition at Discharge: Stable Final Diagnosis/Problems List 79-year-old female with a known history of Alzheimer dementia, has a mechanical fall found to have 1. Right hip avascular necrosis with recommendation status post right hip hemiarthroplasty 2. Leukocytosis likely reactive 3. Dementia 4. Acute delirium/encephalopathy Discharge Disposition: [facility] Discharge Will this Physician continue t: No Discharge Instruct/Medications Diet: Cardiac 2g Na,low cholest Activity: See Comment Activity comment: As tolerated with the physical therapy and occupational therapy. Follow Up/Referral: Follow up with the PCP in one week Follow up with the Orthopedics in one week Follow up with the Neurology Dr. Saira Quiles as an outpatient follow up possible cognitive decline. Medications: As reconciled. Scheduled PRN Tramadol Hcl (Tramadol Hcl), 50 MG PO Q6HP PRN for pain, (Reported) Discharge Statement: "Patient was advised to return to the ER or call 911 if any headaches, dizziness, shortness of breath, chest pain, abdominal pain, bleeding, fevers, or worsening of medical condition. Patient was counseled about treatment plan, medications, possible side effects, patientverbalized understanding. All questions were answered to the best of my ability. This discharge took greater then 30 minutes in planning, reviewing documentation, counseling the patient, and discussing with other team members." ASSESSMENT ASSESSMENT Assessment 79-year-old female with a known history of Alzheimer dementia, has a mechanical fall found to have 1. Right hip avascular necrosis with recommendation status post right hip hemiarthroplasty 2. Leukocytosis likely reactive 3. Dementia 4. Acute delirium/encephalopathy Date of Service: Apr 13, 2025 Billing Provider: ROSINA BELTRAN MD Common Visit Codes: NOT BILLABLE ROSINA BELTRAN MD Apr 13, 2025 13:54
[2025-04-13] MEDS: NEUTRA-PHOS TABLET PO ONE (16:17)
[2025-04-13] MEDS: SODIUM PHOSPHATES 20 MEQ in SODIUM CHL 0.9% 100 ML IV ONE (16:57)
== END 2025-04-13 21:50 | DRG 469 ==
LOC: ER 19:40 → EDBD 19:40 → OVERFLOW 04-11 05:52 → WEST WING 04-11 21:14
PROVIDERS: ADMIT Nurse Practitioner Family; ATTEND Nurse Practitioner Family
PROC: 8E0YXBZ Computer Assisted Procedure of Lower Extremity (ICD-10-PCS; 2025-04-11)
PROC: 0SRR03Z Replacement of Right Hip Joint, Femoral Surface with Ceramic Synthetic Substitute, Open Approach (ICD-10-PCS; principal; 2025-04-11 16:40)
DX: M16.11 Unilateral primary osteoarthritis, right hip (principal); G93.41 Metabolic encephalopathy; M87.88 Other osteonecrosis, other site; G30.9 Alzheimer's disease, unspecified; F02.80 Dementia in other diseases classified elsewhere, unspecified severity, without behavioral disturbance, psychotic disturbance, mood disturbance, and anxiety; G40.909 Epilepsy, unspecified, not intractable, without status epilepticus; E87.5 Hyperkalemia; D72.829 Elevated white blood cell count, unspecified; Z88.6 Allergy status to analgesic agent; W18.39XA Other fall on same level, initial encounter; Y93.89 Activity, other specified; Y92.89 Other specified places as the place of occurrence of the external cause; Y99.8 Other external cause status
CPT/HCPCS: 36415; 70450; 71045; 72170; 72192; 80048; 81001; 82962; 83735; 84100; 84484; 85025; 85610; 85730; 93005; 93306; 96365; 96375; 97163; G0378; J1100; J1815; J1885; J2003; J2405; J2704; J3490